=== PATIENT | male | born 1990 | race Caucasian/White ===

== ENCOUNTER 2020-05-26 13:09 | Emergency (ER) | payer OTHER ==
[~2020-05-26] VITALS: Ht 182.9 cm; Wt 102.1 kg
[2020-05-26] MEDS ORDERED: MONTELUKAST SODI4 M1 PO (13:18)
[2020-05-26] MEDS ORDERED: CLOMIPHENE CITR50 MG PO (13:18)
[2020-05-26] MEDS ORDERED: ACID REDUCER200 MG PO (13:18)
[2020-05-26] MEDS ORDERED: PAXIL 20 MG TAB20 MG PO (13:19)
[2020-05-26] MEDS ORDERED: LAMOTRIGINE250 MG PO (13:19)
[2020-05-26] MEDS ORDERED: SPIRIVA18 MCG INH (13:19)
[2020-05-26] MEDS ORDERED: SUPER THERAVIT1 EACH PO (13:19)
[2020-05-26] MEDS ORDERED: FIBER0.4 GM PO (13:19)
[2020-05-26 13:44] LABS: URINE BLOOD TRACE (Negative); URINE CLARITY CLEAR; URINE COLOR YELLOW; URINE GLUCOSE-RANDOM NEGATIVE (Negative); URINE KETONES NEGATIVE (Negative); URINE LEUKOCYTES-REFLEX NEGATIVE (Negative); URINE NITRITE-REFLEX NEGATIVE (Negative); URINE PROTEIN NEGATIVE (Negative); URINE SPECIFIC GRAVITY >= 1.030 (1.005-1.030); URINE UROBILINOGEN 0.2 E.U./dl (0.2-1.0)
[2020-05-26 13:46] LABS: ICTOTEST (BILI CONFIRMATORY) Negative (Negative); URINE BILIRUBIN 1+ (Negative)
[2020-05-26 13:49] LABS: ABSOLUTE BASOPHILS 0.1 thou/uL (0.0-0.2); ABSOLUTE EOSINOPHILS 0.1 thou/uL (0.0-0.7); ABSOLUTE LYMPHOCYTES 2.5 thou/uL (0.8-5.3); ABSOLUTE MONOCYTES 0.5 thou/uL (0.0-1.2); BASOPHILS 0.9 %; EOSINOPHILS 1.6 %; HEMATOCRIT 41.3 % (42.0-52.0); LYMPHOCYTES 30.4 %; MCHC 33.8 g/dL (28.0-37.0); MCV 88.8 fL (80.0-100.0); MONOCYTES 6.5 %; MPV 8.3 fl. (7.2-11.1); NUCLEATED RBCS 0 /100WBC; PLATELET COUNT* 235 thou/uL (150-400); POLYS 60.6 %; RBC 4.65 mil/uL (4.50-6.00); WBC 8.2 thou/uL (4.0-11.0)
[2020-05-26 14:06] LABS: CALCIUM 8.7 mg/dL (8.5-10.1); POTASSIUM 4.1 mmol/L (3.5-5.1)
[2020-05-26 14:09] LABS: ALBUMIN 3.9 g/dL (3.4-5.0); TOTAL BILIRUBIN 0.4 mg/dL (<0.1-1.0); TOTAL PROTEIN 7.1 g/dL (6.4-8.2)
[2020-05-26] MEDS ORDERED: FLOMAX0.4 MG PO (15:00)
[2020-05-26 15:09] VITALS: BP 123/70
== END 2020-05-26 15:09 | disposition home or self-care (01) ==
LOC: M.ERS 13:09
PROVIDERS: Nurse Practitioner Family
DX: R31.9 Hematuria, unspecified (principal); R10.9 Unspecified abdominal pain; R35.0 Frequency of micturition; R39.15 Urgency of urination; J45.909 Unspecified asthma, uncomplicated; K21.9 Gastro-esophageal reflux disease without esophagitis; Z79.899 Other long term (current) drug therapy